=== PATIENT | female | born 1950 | race Caucasian/White ===

== ENCOUNTER 2018-03-09 05:40 | Day surgery (SDC) | payer MEDICARE ==
[~2018-03-09] VITALS: Ht 165.1 cm; Wt 76.2 kg
[~2018-03-09 05:40] MED LIST: ASPIR-LOW81 MG PO; CITRACAL + D M1 EACH PO; LIPITOR10 MG PO; PEPCID40 MG PO
[2018-03-09] MEDS ORDERED: NORCO 5-325 TA1 EACH PO (08:51)
[2018-03-09] MEDS ORDERED: BALNEOL CLEANSI89 ML TOP (08:52)
[2018-03-09] MEDS ORDERED: BENEFIBER1 EAC1 PO (08:52)
[2018-03-09] MEDS ORDERED: VASELINE18 ML TOP (08:53)
--- NOTE | 2018-03-10 08:12 | OR ---
[facility] [address], [place] [address] Signed DATE OF OPERATION: 03/09/2018 SURGEON: Richa Dexter MD PREOPERATIVE DIAGNOSES: 1. Circumferential external anal skin tags. 2. Left lateral internal and external hemorrhoids. POSTOPERATIVE DIAGNOSES: 1. Circumferential external anal skin tags. 2. Left lateral internal and external hemorrhoids. PROCEDURES: 1. Left lateral internal and external hemorrhoidectomy. 2. Excision of external anal skin tags x3. ESTIMATED BLOOD LOSS: None. INDICATIONS: Radha is a 67-year-old female, who has had previous hemorrhoid surgery in [place] in 1986. She has been very busy having worked for [employer] her whole life. She is now retired. She said the hemorrhoids have come back and have been quite miserable. She talked about her dad be in miserable hemorrhoids right up until the day he . She told me her last colonoscopy was in 2007 at [facility] in [place], [place]. She said it was negative and I had asked her to come back in 10 years. As a result, we advised her to have a colonoscopy later this year. In the meantime, she wanted to deal with her hemorrhoids first. She said they are hard, lumpy, very difficult to clean causing a lot of pain and itching. On exam in the office, she has a dominant internal and external hemorrhoid at the left lateral position that is a bit irritated. Also, her scarring really is on the external components including the left lateral position, but also bilaterally in the posterior positions and then in the midline anteriorly. Fortunately, those skin tags are not particularly large, but certainly they are there and scarred and making it difficult for her to clean. In addition, we found that her anal sphincter tone is moderate and her anal canal was relatively short in length. I had talked to her about the PPH stapler to perform a hemorrhoidopexy and to pull the tissue up inside, but she declined. She told me her sister had neck surgery and had a lot of difficulty with power in the neck. Consequently, we discussed performing a formal hemorrhoidectomy at the left lateral position and excising the skin tags. I explained to Radha that she does need some Electronically Signed By: RICHA DEXTER MD 03/10/18 0812 PATIENT NAME: RADHA MCFARLANE OPERATIVE REPORT DATE OF : 54 REPORT #: [id number] PHYSICIAN: RICHA DEXTER MD PCP: Tamiko GRADY MD REPORT IS CONFIDENTIAL AND NOT TO BE RELEASED WITHOUT AUTHORIZATION [facility] [address], [place] [address] Signed hemorrhoidal cushions in order to provide some level of continence at the anus, particularly since her sphincter tone is moderate. We looked at our brochure in the office and went through that in detail. I circled the pictures relevant to her. We reviewed the surgery along with its risks including, but not limited to bleeding, infection, scarring, change in contour of the skin, anal stenosis, as well as recurrent hemorrhoids. She understands expected intraoperative and postoperative course very well. She expressed understanding and wished to proceed. PROCEDURE NOTE: Radha was given a saddle block by our nurse is consultant in our preoperative area. We then took Radha into our operating room. We placed her in the prone lj-knife position with appropriate padding and monitoring. She was under monitored anesthesia care throughout the procedure. She was given preoperative antibiotics and later subcutaneous heparin along with her SCDs. She was then prepped and draped in the usual sterile fashion. We examined the anal canal and our findings were consistent with the office exam. She has a little more to the internal component that we anticipated in the office with the anoscope. She certainly on the left side at the anterior and posterior positions. However, the most dominant hemorrhoid again is at the left lateral position with the external component and the internal component. Once again, she had declined the PPH stapler for fear of reacting to the power. We went ahead and started with the left lateral hemorrhoid and we placed 2-0 chromic at the apex position on the internal component. We then started at the external component. We excised it very carefully with the cautery. As we went over the muscles and then up to the internal component and passed the entire hemorrhoid off the field, we closed the internal component with a running locked 2-0 chromic suture. After this, we removed 3 external skin tags at the 11, 1 and 6 o'clock positions. After this, she was irrigated and suctioned out until clear. Local anesthetic was then copiously injected around the anus for a field block. A dry ABD was placed along with her underwear. She was then rotated into the supine position onto her hospital bed and taken into recovery room in stable condition. She tolerated the procedure quite well. Richa Dexter MD ALB/MODL /[id number] Electronically Signed By: RICHA DEXTER MD 03/10/18811 PATIENT NAME: RADHA MCFARLANE OPERATIVE REPORT DATE OF : 54 REPORT #: [id number] PHYSICIAN: RICHA DEXTER MD PCP: Tamiko GRADY MD REPORT IS CONFIDENTIAL AND NOT TO BE RELEASED WITHOUT AUTHORIZATION [facility] [address], [place] [address] Signed cc: Tamiko Grady MD Copies: Tamiko GRADY MD ~ Electronically Signed By: RICHA DEXTER MD 03/10/18811 PATIENT NAME: RADHA MCFARLANE OPERATIVE REPORT DATE OF : 54 REPORT #: [id number] PHYSICIAN: RICHA DEXTER MD PCP: Tamiko GRADY MD REPORT IS CONFIDENTIAL AND NOT TO BE RELEASED WITHOUT AUTHORIZATION
== END 2018-03-09 09:30 | disposition home or self-care (01) ==
LOC: DS 05:40
PROVIDERS: Colon & Rectal Surgery
PROC: 06BY0ZC Excision of Hemorrhoidal Plexus, Open Approach (ICD-10-PCS; principal; 2018-03-09 06:45)
DX: K64.8 Other hemorrhoids (principal); K64.4 Residual hemorrhoidal skin tags; E78.5 Hyperlipidemia, unspecified; E21.3 Hyperparathyroidism, unspecified; Z90.89 Acquired absence of other organs; Z98.890 Other specified postprocedural states; Z79.82 Long term (current) use of aspirin; Z79.52 Long term (current) use of systemic steroids; Z79.899 Other long term (current) drug therapy; Z88.5 Allergy status to narcotic agent
CPT/HCPCS: 00902; 88304; 88341; 88342; J0694; J1644; J1885; J2250; J2405; J2704; J7120